=== PATIENT | female | born 1925 | race Caucasian/White ===

== ENCOUNTER 2017-06-22 16:19 | Emergency (ER) | payer MEDICARE, OTHER | END 2017-06-22 17:31 | disposition home or self-care (01) | LOC: BURERS 16:19 | DX: I13.2 Hypertensive heart and chronic kidney disease with heart failure and with stage 5 chronic kidney disease, or end stage renal disease (principal); I50.9 Heart failure, unspecified; N18.6 End stage renal disease; E11.9 Type 2 diabetes mellitus without complications; E78.5 Hyperlipidemia, unspecified | CPT/HCPCS: 99284 ==